=== PATIENT | female | born 1940 | race Native Hawaiian/Other Pacific Islander ===

== ENCOUNTER 2016-11-13 21:13 | Emergency (ER) | payer OTHER, MEDICARE ==
[2016-11-13 21:28] VITALS: BP 169/72; PULSE 94; RESP 20; TEMP 98.2; O2SAT 97
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
== END 2016-11-13 23:34 | disposition home or self-care (01) ==
LOC: C.ER 21:13
DX: S29.012A Strain of muscle and tendon of back wall of thorax, initial encounter (principal); S83.91XA Sprain of unspecified site of right knee, initial encounter; V43.52XA Car driver injured in collision with other type car in traffic accident, initial encounter; Y92.008 Other place in unspecified non-institutional (private) residence as the place of occurrence of the external cause